=== PATIENT | male | born 1975 | race Caucasian/White ===

== ENCOUNTER → 2017-05-09 | Outpatient (CLI) | payer OTHER ==
--- NOTE | 2017-05-09 11:46 | ECHOF ---
Referral Reason:HTN I10 MEASUREMENTS -------- HEIGHT: 175.3 cm WEIGHT: 113.4 kg BP: 101/43 WallScoring: string WallScoring: string WallScoring: string FINDINGS -------- Utilizing the standard Jose Roberto protocol the patient was exercised for minutes, seconds, achieving a maximum heart rate of , which is % of predicted maximal heart rate. There was physiologic heart rate and blood pressure response to exercise. Max Heart Rate: 174 % of Max Predicted Heart Rate: 98 Rest Heart Rate: 76 Rest BP: 101/43 Max BP:162/70 Mets Achieved: 8.5 The test was stopped because of fatigue. This level of exercise represents a fair exercise tolerance for age. Sinus rhythm. In response to stress, the ECG showed no ST-T wave changes (see exercise report for details). In response to stress, the ECG showed no ST-T wave changes (see exercise report for details). There were normal blood pressure and heart rate responses to stress. LV size, wall thickness and systolic function are normal, with an EF of 60%. Echo images were acquired at peak stress which demonstrated appropriate augmentation of all left ventricular segments with slight decrease in cavity size. CONCLUSIONS -------- 1. The test was stopped because of fatigue. 2. This level of exercise represents a fair exercise tolerance for age. 3. In response to stress, the ECG showed no ST-T wave changes (see exercise report for details). 4. No 2D echocardiographic evidence of inducible ischemia to achieved workload. SHOP TAILOR: Enedelia Dodson RDCS
--- NOTE | 2017-05-09 16:28 | EST ---
Referral Reason:HTN I10 MEASUREMENTS -------- HEIGHT: 175.3 cm WEIGHT: 113.4 kg BP: 101/43 FINDINGS -------- Utilizing the standard Jose Roberto protocol the patient was exercised for minutes, seconds, achieving a maximum heart rate of , which is % of predicted maximal heart rate. There was physiologic heart rate and blood pressure response to exercise. Max Heart Rate: 174 % of Max Predicted Heart Rate: 98 Rest Heart Rate: 76 Rest BP: 101/43 Max BP:162/70 Mets Achieved: 8.5 The test was stopped because of fatigue. This level of exercise represents a fair exercise tolerance for age. Sinus rhythm. In response to stress, the ECG showed no ST-T wave changes (see exercise report for details). In response to stress, the ECG showed no ST-T wave changes (see exercise report for details). There were normal blood pressure and heart rate responses to stress. LV size, wall thickness and systolic function are normal, with an EF of 60%. Echo images were acquired at peak stress which demonstrated appropriate augmentation of all left ventricular segments with slight decrease in cavity size. CONCLUSIONS -------- 1. The test was stopped because of fatigue. 2. This level of exercise represents a fair exercise tolerance for age. 3. In response to stress, the ECG showed no ST-T wave changes (see exercise report for details). 4. No 2D echocardiographic evidence of inducible ischemia to achieved workload. QUANTITATIVE DEVELOPER: Enedelia Dodson RDCS MTDD
--- NOTE | 2017-05-14 12:14 | P.ARTDOP ---
Arterial Doppler LOWER EXTREMITY ARTERIAL DOPPLER: DATE OF SERVICE: 05/09/2017 Reason for study: Suspect lower extremity occlusive disease Doppler waveforms: Multiphasic bilaterally throughout. Pulse volume recording: Normal configuration. Pressure gradients: None. Ankle-brachial indices: Greater than 1 bilaterally. Toe pressures: 71 on the right, 109 on the left Impression: Normal-appearing study. Low toe pressures on the right is probably not clinically significant given the excellent digital waveforms..
== END | disposition home or self-care (01) ==
LOC: RADUSWWP 08:35
PROVIDERS: ATTEND Family Medicine
DX: I10 Essential (primary) hypertension (principal); R53.83 Other fatigue; I25.2 Old myocardial infarction
CPT/HCPCS: 93017; 93350; 93923

== ENCOUNTER → 2017-09-04 | Outpatient (CLI) | payer OTHER ==
--- NOTE | 2017-09-04 17:06 | CONS ---
CONSULTATION DATE OF SERVICE: 09/04/2017 42-year-old gentleman has been evaluated in Sleep Center by referring from [facility] as a part of [employer] certification for possible obstructive sleep apnea. HISTORY OF PRESENT ILLNESS/SLEEP-WAKE EVALUATION: Patient's usual sleep schedule from around 8:00 pm until 5 or 6:00 am. No problem with falling asleep. He does have TV set in bedroom. Sleeps on the stomach position. He wakes up from sleep once with nocturia. He snores. He denies any significant daytime sleepiness. [place] Sleepiness Scale is 3. PAST MEDICAL HISTORY: Hypertension. Asthma in childhood. PAST SURGICAL HISTORY: Tonsillectomy, abdominal surgery for foreign object to remove. MEDICATIONS: Losartan, aspirin, isosorbide. SOCIAL HISTORY: Positive for smoking up to 4 packs per day for 12 years. Quit about 5 years ago. Alcohol consumption occasional. FAMILY HISTORY: Hypertension, arthritis, asthma, bronchitis. PHYSICAL EXAM: GENERAL 42-year-old gentleman without distress. VITAL SIGNS BP 118/65, HR 84, RR 16, height 5 feet 7 inches, weight 247, BMI 38.6. Neck is 17 inches in circumference. Temperature 97.7, oxygen saturation room air 97%. HEENT PERRLA, EOMI, evaluation of oropharynx showed moderately low position of soft palate. Big uvula. Big tongue. NECK Supple, no JVD. Thyroid is not palpable. LUNGS Clear to percussion and to auscultation. Good air exchange. No wheezing or rhonchi. HEART S1, S2 regular. No murmurs, gallops, or rubs. ABDOMEN Slightly obese. Soft and nontender. Bowel sounds are present. No organomegaly appreciated. EXTREMITIES No clubbing or cyanosis. 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 Cranial nerves 2 to 7 intact. There is no fasciculation or atrophy. noted. No focal deficits observed. IMPRESSION: 1. Snoring, awakenings from sleep with nocturia and moderately low soft palate, big uvula, big tongue, wide neck, possible obstructive sleep apnea-hypopnea syndrome. 2. Losing weight. 3. Obesity. 4. Hypertension. 5. Status post tonsillectomy. 6. History of asthma in childhood. 7. Status post abdominal surgery for foreign object. 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 Polysomnography for evaluation of patient's breathing during sleep. 2. CPAP/BiPAP titration if sleep study confirms obstructive sleep apnea-hypopnea syndrome. 3. Preferable position during sleep on the side. 4. No driving if patient feels any sleepiness. Patient is aware of civil and criminal liability for unsafe driving. 5. I will see patient for follow up visit to explain results of testing and following plan. Thank you very much for referring this patient for evaluation. Sincerely, Evert Valentin MD, PhD, FAASM Diplomat of [employer] [employer] Inspector [facility] MMODL / IJN: [id number] / [email or web address]
== END | disposition home or self-care (01) ==
LOC: SLEEP 14:00
PROVIDERS: ATTEND Internal Medicine
DX: R06.83 Snoring (principal); R35.1 Nocturia; I10 Essential (primary) hypertension; E66.9 Obesity, unspecified; Z68.38 Body mass index [BMI] 38.0-38.9, adult; Z87.891 Personal history of nicotine dependence; Z87.09 Personal history of other diseases of the respiratory system; Z90.89 Acquired absence of other organs; Z98.890 Other specified postprocedural states
CPT/HCPCS: 99211

== ENCOUNTER → 2018-01-29 | Outpatient (CLI) | payer OTHER ==
--- NOTE | 2018-01-29 16:48 | PN ---
PROGRESS NOTE DATE OF SERVICE: 01/29/2018 This patient is a 42-year-old gentleman who has been followed in the sleep center for treatment of obstructive sleep apnea-hypopnea syndrome. Recently the patient had a home sleep apnea test and CPAP titration, and I discussed results of his sleep studies with the patient in detail. Home sleep apnea test showed apnea-hypopnea index of 10.5 with oxygen desaturation to 84%. Subsequently the patient had CPAP titration which was done up to the pressure of 10 cm of water. The patient was started on treatment with CPAP with a pressure of 9 cm of water. He is trying to use his CPAP equipment every night, and today he came in for his first follow-up visit with his CPAP unit. I checked his CPAP unit for the one month. Patient used it for 27 nights, and 25 nights for more than 4 hours. Average usage was 5.6 hours. CPAP pressure is 9 cm of water. Leak is 35 L/minute. Patient is using AirFit P10 nasal pillows. Apnea-hypopnea index reading for last month is 5.6, for the last week 3.0. [place] Sleepiness Scale today is 2. MEDICATIONS: 1. Losartan. 2. Aspirin. 3. Isosorbide. PHYSICAL EXAMINATION: gentleman without distress. VITAL SIGNS: BP 140/78, HR 100, RR 16, weight 210, temperature 98.4, oxygen saturation at room air 96%. HEENT: PERRLA, EOMI. Evaluation of oropharynx showed tongue protrudes midline; low position of soft palate. NECK: Supple. No JVD. Thyroid is not palpable. LUNGS: Clear to percussion and to auscultation. Good air exchange. No wheezing or rhonchi. HEART: S1, S2 regular. No murmurs, gallops or rubs. ABDOMEN: Obese. Soft and nontender. Bowel sounds are present. No organomegaly appreciated. EXTREMITIES : No clubbing or cyanosis. ADMINISTRATIVE DIETITIAN: Awake, alert, and oriented X3. Cranial nerves 2 to 7 intact. There is no fasciculation or atrophy. noted. No focal deficits observed. IMPRESSION: 1. Obstructive sleep apnea-hypopnea syndrome in mild range, improved with CPAP at 9 cm of water. Patient demonstrated borderline compliance with treatment, benefitting from treatment. 2. Obesity, body mass index 37.5. 3. Hypertension. 4. Hyperlipidemia. 5. Status post tonsillectomy. 6. History of asthma in childhood. 7. Status post abdominal surgery for a foreign object. PLAN: 1. I will increase pressure in the machine to 10 cm of water. 2. Prescription for chin strap. 3. Patient will continue to use CPAP equipment every night for the whole night. 4. Losing weight. 5. Precautions related to driving. No driving if feeling any sleepiness. Patient is aware of civil and criminal liability for unsafe driving. Thank you very much for allowing me to participate in the management of your patient. Sincerely, Evert Valentin MD, PhD, FAASM Diplomat of [employer] [place] [employer] [place] [employer] Ob/Gyn Physician of [facility] [place] MMODL / IJN: [id number] /
== END | disposition home or self-care (01) ==
LOC: SLEEP 15:15
PROVIDERS: ATTEND Internal Medicine
DX: G47.33 Obstructive sleep apnea (adult) (pediatric) (principal); I10 Essential (primary) hypertension; E66.9 Obesity, unspecified; E78.5 Hyperlipidemia, unspecified; Z99.89 Dependence on other enabling machines and devices; Z79.82 Long term (current) use of aspirin; Z79.899 Other long term (current) drug therapy; Z68.37 Body mass index [BMI] 37.0-37.9, adult; Z90.89 Acquired absence of other organs; Z98.890 Other specified postprocedural states; Z87.09 Personal history of other diseases of the respiratory system

== ENCOUNTER → 2018-12-25 | Outpatient (CLI) | payer BC ==
--- NOTE | 2018-12-25 10:00 | XR ---
EXAMINATION TYPE: XR chest 2V DATE OF EXAM: 12/25/2018 COMPARISON: NONE HISTORY: Annual physical. History of tobacco abuse. TECHNIQUE: Frontal and lateral views of the chest are obtained. FINDINGS: There is no focal air space opacity, pleural effusion, or pneumothorax seen. The cardiac silhouette size is within normal limits. The osseous structures are intact. Minimal degenerative ch anges are seen of the thoracic spine and left acromioclavicular joint. IMPRESSION: No acute cardiopulmonary process.
== END | disposition home or self-care (01) ==
LOC: RADXRMAIN 09:35
PROVIDERS: ATTEND Family Medicine
DX: I10 Essential (primary) hypertension (principal)
CPT/HCPCS: 71046

== ENCOUNTER → 2020-02-04 | Outpatient (CLI) | payer BC ==
--- NOTE | 2020-02-04 12:06 | XR ---
Left forearm, left hand, left wrist HISTORY: Pain from fall 1 week prior To views of the left forearm, 3 views the left hand, 3 views the left wrist submitted. Distal intra-articular comminuted left radial metaphyseal fracture is noted with some displacement. M inimally displaced ulnar styloid fracture is also present. No dislocation. There is soft tissue swell ing present. IMPRESSION: Wrist fractures as described.
== END | disposition home or self-care (01) ==
LOC: RADXRMAIN 10:59
PROVIDERS: ATTEND Family Medicine
DX: S59.292A Other physeal fracture of lower end of radius, left arm, initial encounter for closed fracture (principal); S52.612A Displaced fracture of left ulna styloid process, initial encounter for closed fracture

== ENCOUNTER → 2020-11-02 | Outpatient (CLI) | payer OTHER ==
[2020-11-02 20:54] LABS: Chol/HDL Ratio 4.5
== END | disposition home or self-care (01) ==
LOC: LABWHC1 11:12
PROVIDERS: ATTEND Internal Medicine Cardiovascular Disease
DX: E78.2 Mixed hyperlipidemia (principal)
CPT/HCPCS: 36415; 80061; 84450; 84460

== ENCOUNTER → 2022-04-30 | Outpatient (CLI) | payer OTHER ==
--- NOTE | 2022-05-01 08:13 | XR ---
EXAMINATION TYPE: XR ankle complete RT DATE OF EXAM: 04/30/2022 COMPARISON: NONE HISTORY: Pain TECHNIQUE: Frontal, lateral and oblique images of the right ankle are obtained. COMPARISON: None. FINDINGS: There is no acute fracture/dislocation evident. The joint spaces appear within normal franks its. Soft tissue swelling about the ankle greatest laterally. IMPRESSION: There is no acute fracture or dislocation seen.
== END | disposition home or self-care (01) ==
LOC: RADXRMAIN 16:23
PROVIDERS: ATTEND Family Medicine
DX: M25.571 Pain in right ankle and joints of right foot (principal)